=== PATIENT | female | born 1945 | race African-American/Black ===

== ENCOUNTER 2018-12-31 07:46 | Day surgery (SDC) | payer MEDICARE, OTHER ==
[~2018-12-31 07:46] MED LIST: WATER FOR IRRIG STERILE IR ONE; WATER FOR IRRIG STERILE ONE
[2018-12-31] MEDS ORDERED: DIPRIVAN 10 MG/ML IV ONE ×2 (08:06→08:07)
--- NOTE | 2018-12-31 08:35 | Anesthesia Consultation ---
Anesthesia Consult and Med Hx Date of service: 12/31/18 - Airway Anesthetic Teeth Evaluation: Good ROM Head & Neck: Adequate Mental/Hyoid Distance: Adequate Mallampati Class: Class II Intubation Access Assessment: Probably Good - Pulmonary Exam CTA: Yes - Cardiac Exam Cardiac Exam: RRR - Pre-Operative Health Status ASA Pre-Surgery Classification: ASA2 Proposed Anesthetic Plan: MAC - Pulmonary Hx Smoking: No Hx Respiratory Symptoms: No Home Oxygen Therapy: No Hx Sleep Apnea: No
[2018-12-31] MEDS ORDERED: NACL 0.9% 1000 ML 1,000 ML IV SCH (09:00)
[2018-12-31] MEDS ORDERED: NACL 0.9% 100 ML ONE (09:04)
--- NOTE | 2018-12-31 09:33 | History and Physical Report ---
HISTORY OF PRESENT ILLNESS: This is a 73-year-old female, who has an underlying history of hypertension, prior history of colon polyp and a family history of pancreatic cancer. Both patient's father and brother had pancreatic cancer. Lately, the patient has been noticing some changes in bowel habit and some dyspeptic symptoms and had come for evaluation. Last colonoscopy was a few years ago when a polyp was removed from the proximal colon. The patient is to have a repeat colonoscopy to make sure that there is not any recurrence of any polyps and an EGD for evaluation of dyspepsia. ALLERGIES: She has no known allergies. PAST MEDICAL HISTORY: Significant for hypertension. PHYSICAL EXAMINATION: VITAL SIGNS: Otherwise are stable. HEENT: Shows no JVD. LUNGS: Clear to auscultation. CARDIOVASCULAR: Normal. ABDOMEN: Soft. Bowel sounds present. NEUROLOGIC: The patient is otherwise alert and oriented. She has never had any stroke or any heart attacks in the past. ASSESSMENT AND PLAN: History of colon polyp, family history of cancer, pancreatic cancer involving the patient's brother and father; hypertension, and gastritis. Plan is to do an EGD and a colonoscopy today. JOB# [id number] CATRINA/VIOLETA
--- NOTE | 2018-12-31 09:54 | Procedure Note ---
Date of procedure: 12/31/18 Pre-op diagnosis: Dyspepsia/ H/O Colon Polyp Post-op diagnosis: other (Mild to Moderate Distal Erosive Esophagitis/ Gastric Erosion and Gastritis/ No colon Polyps or Diverticular Disease noted/ Minor Internal Hemorrhoid) Procedure: EGD with Biopsy and Colonoscopy Anesthesia: [facility] [place] Surgeon: RODRIGO OLMBARDI Estimated blood loss: minimal Pathology: list Specimen disposition: to lab Condition: stable Disposition: same day (Treat with PPI. Avoid aspirin and NSAID for 5 days. Follow up in 1 to 2 weeks ([phone]).)
--- NOTE | 2018-12-31 09:55 | Operative Report ---
PROCEDURE: Esophagogastroduodenoscopy with biopsy. INDICATIONS: This is a 73-year-old female, who has been having dyspeptic symptoms. EGD was done to assess for any upper GI pathology. DESCRIPTION OF PROCEDURE: Procedure was done after getting informed consent with MAC anesthesia. Instrument was passed through the hypopharynx into the esophagus, which showed mild to moderate distal erosive esophagitis. Biopsy was done from the distal esophagus. Stomach showed antral erosion and gastritis. Biopsy was done from the gastric antrum, angularis incisura and gastric body to rule out for H. pylori and atrophic gastritis. The pylorus is patent. Duodenum in the first and second portion appeared normal. There was minimal bleeding from the biopsy sites. No complications associated with the procedure. ASSESSMENT: Mild to moderate distal erosive esophagitis, gastric erosion gastritis. No peptic ulcer disease noted. There was minimal bleeding from the biopsy sites. No complications associated with the procedure. The patient will be treated with PPI and asked to follow up in the office in 1-2 weeks' time. A colonoscopy will also be done because of her prior history of colon polyp. RNNava was in the room throughout the entirety of the procedure. JOB# [id number] CATRINA/VIOLETA
--- NOTE | 2018-12-31 10:00 | Operative Report ---
PROCEDURES PERFORMED: Colonoscopy. INDICATIONS: This is a 73-year-old female who had a prior history of colon polyp. Last colonoscopy was a few years ago. A repeat colonoscopy was done to make sure that there was not any recurrence of any polyps. Procedure was done after getting informed consent with MAC anesthesia. DESCRIPTION OF PROCEDURE: Initial rectal exam was unremarkable. Instrument was passed through rectum onto the cecum, which was identified with ileocecal valve. The scope was retroflexed in the cecum. No polyps were noted and the colonoscope was withdrawn to the hepatic flexure and reintroduced again to make sure that there were not any polyps in the colon. Visualization was fair to good. Cecum, ascending colon, transverse colon, descending colon, and sigmoid showed normal mucosa and the rectum showed minor internal hemorrhoid on the retroverted view. No biopsies were done in the colon. There was no bleeding associated with the procedure. IMPRESSION: History of colon polyp. No colon polyps at present. Minor internal hemorrhoid. There was no bleeding associated with the colonoscopy, no complications associated with the colonoscopy. PLAN: To treat the patient with PPI because of the upper GI findings of gastric erosion, gastritis, and esophagitis. The patient will be asked to avoid aspirin and aspirin-related products for the next few days and asked to follow up in the office in 1-2 weeks' time. RNNava was in the room throughout the entirety of the procedure. JOB# [id number] CATRINA/VIOLETA
[2018-12-31 10:34] VITALS: BP 107/59
== END 2018-12-31 07:47 | disposition home or self-care (01) ==
LOC: GIO 07:46
DX: Z12.11 Encounter for screening for malignant neoplasm of colon (principal); K64.8 Other hemorrhoids; K29.70 Gastritis, unspecified, without bleeding; K20.9 Esophagitis, unspecified; E78.00 Pure hypercholesterolemia, unspecified; I10 Essential (primary) hypertension; Z86.010 Personal history of colon polyps; Z79.899 Other long term (current) drug therapy; Z79.01 Long term (current) use of anticoagulants
CPT/HCPCS: 43239; 88305; 88342; G0105; J2704

== ENCOUNTER 2019-05-06 09:34 | Outpatient (CLI) | payer MEDICARE, OTHER ==
[2019-05-06 09:58] LABS: Hematocrit 40.5 % (30.3-42.9); Hemoglobin 13.9 gm/dl (10.1-14.3); Mean Corpuscular HGB Conc 34 % (30-34); Mean Corpuscular Volume 94 fl (79-97); Platelet Count 164 K/mm3 (140-440); Red Cell Distribution Width 12.8 % (13.2-15.2)
[2019-05-06 10:14] LABS: Alanine Aminotransferase 18 units/L (7-56); Albumin 4.5 g/dL (3.9-5); Blood Urea Nitrogen 17 mg/dL (7-17)
[2019-05-06 10:38] LABS: Bilirubin,Direct < 0.2 mg/dL (0-0.2)
--- NOTE | 2019-05-06 14:07 | Cat Scan Report ---
CT ABDOMEN AND PELVIS WITH CONTRAST HISTORY: Upper abdominal pain. COMPARISON: None TECHNIQUE: Routine abdominal and pelvic CT exam performed following intravenous and oral contrast ad ministration. Dose modifications were made with adjustment of KV and maS according to patient size. CONTRAST: 100 mL Omnipaque 300. Consent was obtained prior to the administration of the contrast. FINDINGS: CT ABDOMEN: Lung Bases: Clear. Liver: Normal. Biliary: Normal gallbladder and bile ducts. Spleen: Normal. Pancreas: Normal. No mass and no evidence of acute or chronic pancreatitis. Adrenals: Normal. Kidneys: Normal right kidney. A few tiny left renal cyst. The renal collecting systems and ureters ar e nondilated. Lymphatics: No lymphadenopathy. Vasculature: Inferior vena cava. Aortic tortuosity. Mild proximal iliac artery calcification. Bowel/Peritoneum: No significant abnormality. No free air. No free fluid. Normal appendix. CT PELVIC: : A small uterus with heterogeneous density suggestive of small fibroids. Ovaries not identified. Osseous Structures: No significant abnormality. Additional Findings: None IMPRESSION: 1. Normal abdomen with no explanation for abdominal pain. 2. A small uterus with possible fibroids. Signer Name: Sam Malone MD Signed: 05/06/2019 2:02 PM Workstation Name: [id number]
== END 2019-05-06 09:35 | disposition home or self-care (01) ==
LOC: CT 09:34
DX: I70.8 Atherosclerosis of other arteries (principal); Q25.46 Tortuous aortic arch; I10 Essential (primary) hypertension; E78.00 Pure hypercholesterolemia, unspecified
CPT/HCPCS: 36415; 74177; 80076; 82565; 84520; 85027; Q9967